=== PATIENT | male | born 1935 | race Caucasian/White ===

== ENCOUNTER → 2020-11-13 | Outpatient (CLI) | payer OTHER ==
[~2020-11-13] MED LIST: ADULT ASPIRIN R81 MG PO; ALLOPURINOL 10100 M2 PO; DUTASTERIDE0.5 MG PO; FLOMAX0.4 MG PO; JANUVIA100 MG PO; LIPITOR 40 MG T40 M1 PO; LOTENSIN HCT 21 EAC2 PO; METFORMIN HCL500 M3 PO; OCUVITE TABLET1 EAC1 PO; PRADAXA150 MG PO; TIMOLOL MALEATE5 M2 RT. EYE; VITAMIN C WIT1000 MG PO
[2020-11-13 14:30] VITALS: BP 124/66
[2020-11-13 15:28] LABS: HEMATOCRIT 37.9 % (42.0-52.0); HEMOGLOBIN 12.8 gm/dL (14.0-18.0); MCH 28.8 pg (26.0-34.0); MCHC 33.6 g/dL (28.0-37.0); MCV 85.7 fL (80.0-100.0); RBC 4.43 mil/uL (4.50-6.00); RDW 14.7 % (10.5-14.5); WBC 6.2 thou/uL (4.0-11.0)
[2020-11-13 15:38] LABS: ALBUMIN 3.4 g/dL (3.4-5.0); CALCIUM 8.8 mg/dL (8.5-10.1); CREATININE 1.4 mg/dL (0.7-1.3); POTASSIUM 3.6 mmol/L (3.5-5.1); TOTAL BILIRUBIN 0.4 mg/dL (0.2-1.0); TOTAL PROTEIN 7.3 g/dL (6.4-8.2)
[2020-11-13 15:59] VITALS: BP 124/66
--- NOTE | 2020-11-13 16:09 | NUR ---
[id number] PLACED FOR OUTPT ABX. PLEASE SEE NI FOR DETAILS
--- NOTE | 2020-11-13 16:30 | NUR ---
ARRIVED AMBULATORY WITH . TEACHING DONE WITH PATIENT AND ON PICC LINE PLACEMENT AND ERTAPENEM. VASCUALR TEAM HERE TO PLACE PICC LINE. FIRST DOSE OF ANTIBIOTIC GIVEN WITHOUT INCIDENT. PATIENT STAYED FOR 30 MINUTES AFTER COMPLETION OF MEDICATION. HOME HEALTH TO CONTINUE DAILY ERTAPENEM AT HOME STARTING 11/14/20. LABS DRAWN FROM PICC LINE, RESULTED, AND CBC AND CMP FAXED TO DR. PENNY'S OFFICE. DC IN STABLE CONDITION TO HOME WITH .
== END ==
LOC: OPONC 13:40
PROVIDERS: ATTEND Specialist
DX: N41.9 Inflammatory disease of prostate, unspecified (principal)
CPT/HCPCS: 27000; 95000